=== PATIENT | female | born 1985 | race Caucasian/White ===

== ENCOUNTER 2018-01-16 20:42 | Emergency (ER) | payer OTHER ==
[~2018-01-16] VITALS: Ht 165.1 cm; Wt 89.8 kg
--- NOTE | 2018-01-16 20:47 | ED.ADGEN ---
Past History Past Surgical History: Other Adult General Chief Complaint Chief Complaint ".. I am afraid . .. I have strep. again.. I had a series of + stept. infections.. and developed rheumatic fever.... 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 ".. " They messed the bx.. of my lymph nodes.. and got contaminated cultures.. eventually my dad who is a doctor did the biopsy..".. and made the diagnosis" ... HPI HPI Patient is a 32 year old female who presents with above hx and complaints marked pharyngitis for the last couple days. Has been exposed to numerous children with sore throats and strep. as a school bus driver. Patient has significant medical history of development of rheumatic fever and extensive adenopathy of neck. She underwent multiple biopsies eventually found to have chronic strep infection which caused a adenopathy. Patient underwent moderately penicillin injections. No recent travel.History of immunosuppression. Patient normally follows at [facility]. Patient is up-to-date with vaccinations. Review of Systems Review of Systems Constitutional: Hx. of fever or chills [] Eyes: Denies change in visual acuity, redness, or eye pain [] HENT: Denies nasal congestion. Hx. of sore throat [] Respiratory: Denies cough or shortness of breath [] Cardiovascular: No additional information not addressed in HPI [] GI: Denies abdominal pain, nausea, vomiting, bloody stools or diarrhea [] : Denies dysuria or hematuria [] Musculoskeletal: Denies back pain or joint pain [] Integument: Denies rash or skin lesions [] Neurologic: Denies headache, focal weakness or sensory changes [] Endocrine: Denies polyuria or polydipsia [] All other systems were reviewed and found to be within normal limits, except as documented in this note. Family History Family History Noncontributory Current Medications Current Medications Current Medications Medications (Trade) Dose Ordered Sig/Radha Start Time Stop Time Status Last Admin Dose Admin Prednisone (Prednisone) 20 mg STK-MED ONCE 01/16/18 21:22 01/16/18 21:23 DC See nursing for home meds Allergies Allergies Allergies Coded Allergies Type Severity Reaction Last Updated Verified hydroxychloroquine Allergy Severe 01/16/18 Yes piroxicam Allergy Intermediate 9/15/18 Yes Physical Exam Physical Exam Constitutional: Well developed, well nourished, Moderately acute distress, non- toxic appearance. [] HENT: Normocephalic, atraumatic, bilateral external ears normal, oropharynx moist,injected pharynx, no oral exudates, nose clear rhinorrhea. []Old surgical bx. scars. Eyes: PERRLA, EOMI, conjunctiva normal, no discharge. [] Neck: Normal range of motion, no tenderness, supple, no stridor. [] Cardiovascular:Heart rate regular rhythm, no murmur [] Lungs & Thorax: Bilateral breath sounds clear to auscultation [] Abdomen: Bowel sounds normal, soft, no tenderness, no masses, no pulsatile masses. [] Skin: Warm, dry, no erythema, no rash. [] Back: No tenderness, no CVA tenderness. [] Extremities: No tenderness, no cyanosis, no clubbing, ROM intact, no edema. [] Neurologic: Alert and oriented X 3, normal motor function, normal sensory function, no focal deficits noted. [] Psychologic: Affect anxious, judgement normal, mood normal. [] Current Patient Data Lab Results Laboratory Tests Test 01/16/18 21:00 Group A Streptococcus Rapid Negative (NEGATIVE) EKG EKG [] Radiology/Procedures Radiology/Procedures [] Course & Med Decision Making Course & Med Decision Making Pertinent Labs and Imaging studies reviewed. (See chart for details). Gargle with Listerine 4 times a day. Take Tylenol and ibuprofen for discomfort. For marked discomfort take Vicoprofen up 4 times a day. Keep follow -up primary care. Push fluids and fruit juices. Liquid Benadryl sometimes helpful. Topical pain relief of sore throat. Would recommend to keep follow-up due to her complex medical history for this presentation. [] Final Impression Final Impression 1. Viral pharyngitis[] Dragon Disclaimer Dragon Disclaimer This electronic medical record was generated, in whole or in part, using a voice recognition dictation system. JENNIFER BANKS MD Jan 16, 2018 20:47
[2018-01-16 21:10] VITALS: BP 117/68
[2018-01-16] MEDS ORDERED: multivitamin (21:21)
[2018-01-16] MEDS ORDERED: [UNRECOGNIZED DRUG - REMARK] (21:21)
[2018-01-16] MEDS ORDERED: metformin (21:21)
[2018-01-16] MEDS ORDERED: predniSONE 20 MG TABLET ONE (21:22)
[2018-01-16] MEDS ORDERED: HYDR-79 PO (21:23)
[2018-01-16] MEDS ORDERED: predniSONE 20 MG TABLET PO ONE (21:30)
== END 2018-01-16 21:35 | disposition home or self-care (01) ==
LOC: ER 20:42
DX: J02.8 Acute pharyngitis due to other specified organisms (principal); B97.89 Other viral agents as the cause of diseases classified elsewhere; Z88.8 Allergy status to other drugs, medicaments and biological substances
CPT/HCPCS: 87070; 87880; 99283; J7512

== ENCOUNTER 2018-07-22 03:22 | Emergency (ER) | payer OTHER ==
[~2018-07-22] VITALS: Ht 165.1 cm; Wt 84.8 kg
[~2018-07-22 03:22] MED LIST: HYDR-1179 PO; [UNRECOGNIZED DRUG - REMARK]; metformin; multivitamin
[2018-07-22 03:25] VITALS: BP 119/66
--- NOTE | 2018-07-22 04:12 | ED.ADGEN ---
Past History Past Medical History: Anxiety, Arthritis, Ovarian Cyst, Other Past Surgical History: Appendectomy, Other Alcohol Use: Occasionally Drug Use: None Adult General Chief Complaint Chief Complaint foot pain HPI HPI 33 years old female presented to the emergency department with left foot pain stated that she stepped on something and felt pop and since then spread to her she is able to ambulate on it able to move it in all direction Review of Systems Review of Systems Constitutional: Denies fever or chills [] Eyes: Denies change in visual acuity, redness, or eye pain [] HENT: Denies nasal congestion or sore throat [] Respiratory: Denies cough or shortness of breath [] Cardiovascular: No additional information not addressed in HPI [] GI: Denies abdominal pain, nausea, vomiting, bloody stools or diarrhea [] : Denies dysuria or hematuria [] Musculoskeletal: Denies back pain or joint pain [] All other systems were reviewed and found to be within normal limits, except as documented in this note. Current Medications Current Medications Current Medications Medications (Trade) Dose Ordered Sig/Radha Start Time Stop Time Status Last Admin Dose Admin Ibuprofen (Motrin) 600 mg 1X ONCE 07/22/18 04:15 07/22/18 04:16 UNV Allergies Allergies Allergies Coded Allergies Type Severity Reaction Last Updated Verified hydroxychloroquine Allergy Severe 01/16/18 Yes piroxicam Allergy Intermediate 01/16/18 Yes Physical Exam Physical Exam Neck: Normal range of motion, no tenderness, supple, no stridor. [] Cardiovascular:Heart rate regular rhythm, no murmur [] Lungs & Thorax: Bilateral breath sounds clear to auscultation [] Abdomen: Bowel sounds normal, soft, no tenderness, no masses, no pulsatile masses. [] Skin: Warm, dry, no erythema, no rash. [] Back: No tenderness, no CVA tenderness. [] Extremities: No tenderness, no cyanosis, no clubbing, ROM intact, no edema. [] Current Patient Data Vital Signs Vital Signs Date Time Temp Pulse Resp B/P (MAP) Pulse Ox O2 Delivery O2 Flow Rate FiO2 07/22/18 03:25 97.4 60 18 97 Room Air EKG EKG [] Radiology/Procedures Radiology/Procedures [] Course & Med Decision Making Course & Med Decision Making Pertinent Labs and Imaging studies reviewed. (See chart for details) [] Final Impression Final Impression [] Problems: (1) Sprain of foot, left Qualifiers: Qualified Codes: S93.602A - Unspecified sprain of left foot, initial encounter Dragon Disclaimer Dragon Disclaimer This electronic medical record was generated, in whole or in part, using a voice recognition dictation system. LORETTA OZUNA MD Jul 22, 2018 04:12
[2018-07-22] MEDS ORDERED: IBUPROFEN 600 MG TABLET. PO ONE ×2 (04:15)
--- NOTE | 2018-07-22 08:54 | RAD ---
Indication:lt foot pain TECHNIQUE: 3 views of the left foot COMPARISON:None FINDINGS: No acute fracture or dislocation. Note made of Os Navicularis. No arthritic process. No soft tissue abnormality. IMPRESSION: As above. Electronically signed by: Fracisco Hussein DO (07/22/2018 8:51 AM) [facility]
== END 2018-07-22 04:20 | disposition home or self-care (01) ==
LOC: ER 03:22
DX: S93.602A Unspecified sprain of left foot, initial encounter (principal); F41.9 Anxiety disorder, unspecified; M19.90 Unspecified osteoarthritis, unspecified site; Z88.8 Allergy status to other drugs, medicaments and biological substances; X50.9XXA Other and unspecified overexertion or strenuous movements or postures, initial encounter; Y93.89 Activity, other specified; Y92.89 Other specified places as the place of occurrence of the external cause; Y99.8 Other external cause status
CPT/HCPCS: 73630; 99283